=== PATIENT | male | born 1995 | race Two or more races ===

== ENCOUNTER 2019-06-11 01:08 | Emergency (ER) | payer SELFPAY ==
[~2019-06-11] VITALS: Ht 170.2 cm; Wt 63.6 kg
[2019-06-11] MEDS ORDERED: ACETAMINOPHEN 500 MG TABLET PO ONE (01:30)
[2019-06-11] MEDS ORDERED: IBUPROFEN 600 MG TABLET PO ONE (01:30)
[2019-06-11 02:15] VITALS: BP 110/68
== END 2019-06-11 02:22 | disposition home or self-care (01) ==
LOC: EMS 01:08
DX: S13.4XXA Sprain of ligaments of cervical spine, initial encounter (principal); V49.9XXA Car occupant (driver) (passenger) injured in unspecified traffic accident, initial encounter; Y93.89 Activity, other specified; Y92.89 Other specified places as the place of occurrence of the external cause; Y99.8 Other external cause status